=== PATIENT | female | born 1965 | race Caucasian/White ===

== ENCOUNTER 2019-09-14 08:28 | Day surgery (SDC) | payer OTHER, SELFPAY ==
[2019-09-14] VITALS (8 sets, daily range): BP systolic 134–152; BP diastolic 77–96; PULSE 69–87; RESP 14–20; TEMP 36.1–36.7; O2SAT 96–99; BMI 39.3
--- NOTE | 2019-09-14 | DI.RAD.S_ITS ---
PROCEDURE: XR ABDOMEN 1V INDICATIONS: RIGHT STENT PLACEMENT TECHNIQUE: One view of the abdomen acquired. COMPARISON: None. FINDINGS: Spot fluoroscopic intraoperative image demonstrates partially visualized right ureteral stent. Dictated by: Fran Kent M.D. on 09/14/2019 at 16:38 Approved by: Fran Kent M.D. on 09/14/2019 at 16:38
[2019-09-14] MEDS: LACTATED RINGERS 1,000 ML 42 ML IV (09:42)
--- NOTE | 2019-09-14 10:49 | PM.PREOP ---
Pre-operative Note Interval Note History & Physical reviewed/Exam performed by Physician: Yes Changes to H&P: No H&P completed within 30 days and has changed as indicated here:: There are no changes to the history and physical examination scanned on file.
[2019-09-14] MEDS: CEFTRIAXONE 2 GM/50 ML FROZ.PIGGY IV (11:05)
--- NOTE | 2019-09-14 11:37 | SUR.OPER ---
Lithotomy on padded OR bed, head on pillow, arms secured on padded arm boards at <90 degrees abduction. Legs secured in padded yellow fins stirrups.
[2019-09-14] MEDS: IOPAMIDOL 15 ML VIAL INJ (11:40)
--- NOTE | 2019-09-14 12:15 | SUR.OPER ---
See laser tech notes for laser wire/power settings and duration times
[2019-09-14] MEDS: BELLADONNA/OPIUM SUPPOSITORIES 1 EACH PR (13:11)
--- NOTE | 2019-09-14 13:23 | PM.OP.1 ---
Operative Date/Time/Diagnoses Date of procedure: 09/14/19 Time of procedure: 13:23 Pre-op diagnosis: Right lower pole renal calculus Recurrent Proteus mirabilis UTI/right pyelonephritis Post-op diagnosis: same Procedure & Clinicians Procedure: 1. Cystoscopy and right ureteroscopic intrarenal laser lithotripsy. 2. Cystoscopy and right retrograde pyelogram. 3. Cystoscopy placement of right ureteral stent (6 Guyanese by 24 cm). Same procedure as scheduled: Yes Indications: 1. Right lower pole renal calculus. 2. History of recurrent Proteus mirabilis UTI/right pyelonephritis. Surgeon: Jamee Peck Click Yes if Unassisted: Yes Operative Notes Findings: The bladder urothelium was consistent with chronic inflammation and cystitis glandularis ureteral orifices were normal position bilaterally. The calculus was in the lower pole in an anterior calyx and was extremely difficult to access of. Closure Type: not applicable Specimen(s): none sent Applied: other (Six Guyanese by a 24 cm double-J ureteral stent (right).) Estimated Blood Loss (mL): 5 Blood products transfused: none Tourniquet time (min): 0 Procedure in detail: Patient was positioned in supine and was administered general anesthesia. The 22 Guyanese panendoscope was passed in lower urinary track with the findings as described above. A 0.35 guidewire was then advanced through the cystoscope into the right ureteral orifice and advanced proximally under direct and fluoroscopic guidance. The panendoscope was then backloaded off the wire and a 35 cm x 9.5 Guyanese ureteral access sheath was advanced over the wire again over direct and fluoroscopic guidance. The flexible ureteral scope was then prepared was advanced over the guidewire again under direct and fluoroscopic guidance. A retrograde pyelogram was then performed with half-strength Isovue. Meticulous ureteroscopic examination of the collecting system within the right kidney was then undertaken. The calculus was finally identified in a very difficult anterior and inferior position the a laser fiber was then set of requested and all operating room personnel and patient were fitted with laser safety eyewear. Lithotripsy was then conducted with overall excellent fragmentation of the calculus. The mainstem challenge was maintaining position and dust direct visualization of the calculus. The stone was really localized on 3 separate occasions due to the difficulty maintaining access. The stone was fragmented overall quite well but not and as small of fragments as would have been ideal. At this point it was decided to position of stent and re-image remaining stone burden in the postoperative setting. The ureteral scope was then removed the guidewire was then replaced within the ureteral access sheath ureteral access sheath was then backloaded off the wire. Now the panendoscope was front loaded on the wire. A 6 Guyanese by 24 cm double-J ureteral stent was then selected. This was advanced over the guidewire under direct and fluoroscopic guidance. No retrieval line was left attached. The bladder was then drained completely and all instrumentation was removed. The patient was then awakened transferred to [facility] and transferred to recovery in stable condition. Complications: none Post-operative Condition: stable Disposition: PACU Plan for aftercare: Discharge home
--- NOTE | 2019-09-14 13:37 | SUR.PHASEI ---
Pt remembered she needed to lay on left side, pt. put herself onto her left side.
[2019-09-14] MEDS: OXYCODONE/ACETAMINOPHEN 5/325 TABLET 1 TAB PO (13:45)
[2019-09-14] MEDS: ONDANSETRON 4 MG/2 ML INJ IV (13:48)
[2019-09-14] MEDS: FUROSEMIDE 20 MG/2 ML VIAL IV (13:57)
== END 2019-09-14 15:00 | disposition home or self-care (01) ==
PROVIDERS: Referring Provider Specialist; Visit Provider Specialist
PROC: (CPT 52356; principal; 2019-09-14 10:45)
DX: N20.0 Calculus of kidney (principal); N39.0 Urinary tract infection, site not specified; B96.4 Proteus (mirabilis) (morganii) as the cause of diseases classified elsewhere; G62.9 Polyneuropathy, unspecified
CPT/HCPCS: 52356; 74018; 76000; 87086; J0696; J1100; J1940; J2250; J2405; J2704; J3010

== ENCOUNTER 2019-12-21 09:21 | Day surgery (SDC) | payer OTHER, SELFPAY ==
[2019-12-21] VITALS (14 sets, daily range): BP systolic 98–147; BP diastolic 43–83; PULSE 59–77; RESP 9–24; TEMP 35.3–37.3; O2SAT 93–100; BMI 38.7
[2019-12-21] MEDS: LACTATED RINGERS 1,000 ML 42 ML IV (10:25)
[2019-12-21] MEDS: CEFTRIAXONE 1 GM/50 ML FROZ.PIGGY IV (10:28)
--- NOTE | 2019-12-21 11:54 | P.OP_ITS ---
Operative Date/Time/Diagnoses Date of procedure: 12/21/19 Time of procedure: 11:54 Pre-op diagnosis: 1. 1.2 x 1.6 cm right renal calculus. 2. History of right pyelonephritis/urosepsis. 3. Retained right ureteral stent. Post-op diagnosis: same Procedure & Clinicians Procedure: 1. Right extracorporeal shockwave lithotripsy (2250 shocks at maximal power level 7.5). 2. Cystoscopy and removal right ureteral stent. Same procedure as scheduled: Yes Indications: 1. Right renal calculus. 2. History of right pyelonephritis/urosepsis. 3. Retained right ureteral stent. Surgeon: Jamee Peck Click Yes if Unassisted: Yes Anesthesia Type: General Operative Notes Findings: Irregular radiopaque calculus overlying the mid lower right renal collecting system. Intact right ureteral stent radiographically and endoscopically. Closure Type: not applicable Specimen(s): none sent Estimated Blood Loss (mL): 0 Blood products transfused: none Tourniquet time (min): 0 Procedure in detail: The patient was positioned in supine and administered general anesthesia. The above-described stone was then localized the xy and Z plane. Lithotripsy was commenced at minimal power level for total of 200 shocks after which a pause was conducted for 2 minutes lithotripsy was then resumed and the power level was gradually increased to a maximal a 7.5. The stone and its fragments were really localize numerous times throughout the case. At 2250 shocks there was no radiographic visible evidence of remaining stone or sizable fragment. The patient was then repositioned in semi lithotomy. The lower abdomen genitalia and groin were then prepped and draped in sterile fashion. A 22 B[place]udian panendoscope was passed the lower urinary tract and the stent was engaged with a foreign body grasper. Stent was then removed and discarded. The bladder contents were drained a final time and the panendoscope was removed. The patient was then repositioned in supine, awakened, and then transferred to [facility] in stable condition. Complications: none Post-operative Condition: stable Disposition: PACU Plan for aftercare: Discharge home
--- NOTE | 2019-12-21 12:17 | SUR.PHASEI ---
Patient arrived in PACU w/oral airway. Radha hugger on for hypothermia. Placed patient on L side with head down per Dr Peck. VSS. Patient denies pain.
[2019-12-21] MEDS: FUROSEMIDE 40 MG/4 ML VIAL 20 MG IV (12:52)
--- NOTE | 2019-12-21 12:59 | SUR.PHASEI ---
IV lasix given per order.
--- NOTE | 2019-12-21 13:43 | SUR.PHASEII ---
pt toelrating juice and crackers, denies any pain or discomfort. right flank with small red area, no swelling or bruising noted
--- NOTE | 2019-12-21 14:32 | SUR.PHASEII ---
patient up to the bathroom. Kaylee fragments sent to the lab per Dr. Peck. MD notified patient requested post-op Zofran prescription. VVO Zofran SL 4mg q4-6hr,#12 called to [facility] [place] per and patient request. VS stable. Patient discharged.
[2020-01-03 10:33] LABS: Size 3X5; Stone Analysis Source URINARY TRACT
[2020-01-03 10:36] LABS: Ca oxalate monohydr 10; CaHPO4 (Brushite) 10; Carbonate Apatite 80
== END 2019-12-21 14:13 | disposition home or self-care (01) ==
PROVIDERS: Referring Provider Specialist; Visit Provider Specialist
PROC: (CPT 50590; principal; 2019-12-21 10:45)
DX: N20.0 Calculus of kidney (principal); I10 Essential (primary) hypertension; E66.9 Obesity, unspecified; F41.9 Anxiety disorder, unspecified; F32.9 Major depressive disorder, single episode, unspecified; N18.2 Chronic kidney disease, stage 2 (mild)
CPT/HCPCS: 50590; 82365; J1100; J1940; J2405; J2704; J3010